=== PATIENT | female | born 1965 | race Caucasian/White ===

== ENCOUNTER 2016-10-30 14:37 | Emergency (ER) | payer MEDICARE ==
[2016-10-30] MEDS ORDERED: METHYLPRED SOD SUCC 125 MG/2 ML VIAL ONE (21:58)
[2016-10-30] MEDS ORDERED: DUONEB INH ONE ×2 (22:26→22:27)
== END 2016-10-30 22:47 | disposition home or self-care (01) ==
LOC: ER 14:37
DX: J98.01 Acute bronchospasm (principal); Z79.899 Other long term (current) drug therapy; Z87.891 Personal history of nicotine dependence
CPT/HCPCS: 36415; 71020; 80053; 82553; 83880; 84484; 85025; 96374; 99284; J2930